=== PATIENT | male | born 1935 | race Two or more races ===

== ENCOUNTER 2022-08-15 10:43 | Emergency (ER) | payer MEDICAID, OTHER ==
[~2022-08-15] VITALS: Ht 175.3 cm; Wt 69.9 kg
[2022-08-15] MEDS ORDERED: TDAP [DIPH/PERTUSSIS/TET] 0.5 ML VIAL IM ONE ×2 (11:11→11:30)
--- NOTE | 2022-08-15 11:17 | NUR ---
TDAP GIVEN RIGHT DELTOID IM, KIMBERLYN WELL.
--- NOTE | 2022-08-15 12:33 | NUR ---
DR CAGLE AT BEDSIDE FOR LAC REPAIR
[2022-08-15] MEDS ORDERED: CEPHALEXIN MONOHYDRATE 500 MG CAPSULE PO ONE ×2 (13:55→14:00)
[2022-08-15] MEDS ORDERED: CEPH500C2 PO (14:24)
--- NOTE | 2022-08-15 14:52 | NUR ---
SPEAKING WITH SON THROUGH PHONE
--- NOTE | 2022-08-15 15:12 | NUR ---
FAMILY AT BEDSIDE TO PICKUP PT.
--- NOTE | 2022-08-15 15:13 | NUR ---
Patient discharged to home accompanied by family (dtr) in stable condition. Written and verbal after care instructions given. Patient verbalizes understanding of instruction.
[2022-08-15 15:15] VITALS: BP 124/70
== END 2022-08-15 15:16 | disposition home or self-care (01) ==
LOC: ER 10:46
DX: S02.2XXA Fracture of nasal bones, initial encounter for closed fracture (principal); S01.82XA Laceration with foreign body of other part of head, initial encounter; W01.0XXA Fall on same level from slipping, tripping and stumbling without subsequent striking against object, initial encounter; Y93.89 Activity, other specified; Y92.89 Other specified places as the place of occurrence of the external cause; Y99.8 Other external cause status
CPT/HCPCS: 99284; 12052; 72125; 90471; 90715; 70450; 70486; A6403 ×2

== ENCOUNTER 2022-08-17 12:07 | Emergency (ER) | payer OTHER ==
[~2022-08-17] VITALS: Ht 175.3 cm; Wt 69.9 kg
[2022-08-17 12:07] VITALS: BP 121/70
[~2022-08-17 12:07] MED LIST: CEPH500C2 PO
--- NOTE | 2022-08-17 12:07 | NUR ---
BIB FAMILY FOR A FOLLOW UP FROM BEING PREVIOUSLY TREATED FOR A FALL 08/15
--- NOTE | 2022-08-17 13:31 | NUR ---
PT GIVEN VERBAL DISCHARGE INSTRUCTIONS FROM DR COLE, PT LEFT FACILITY IN STABLE CONDITION, WALKING WITH STEADY GATE.
== END 2022-08-17 13:32 | disposition home or self-care (01) ==
LOC: ER 12:17
DX: Z48.01 Encounter for change or removal of surgical wound dressing (principal)